=== PATIENT | female | born 1985 | race Caucasian/White ===

== ENCOUNTER 2016-09-16 11:45 | Emergency (ER) | payer OTHER ==
[~2016-09-16] VITALS: Ht 162.6 cm; Wt 104.0 kg
[~2016-09-16 11:45] MED LIST: AUGMENTIN875 MG PO
[2016-09-16 12:13] VITALS: BP 100/85
[2016-09-16] MEDS ORDERED: PRENATAL TABLE1 EAC3 PO (13:38)
[2016-09-16] MEDS ORDERED: LEXAPRO20 MG PO (13:38)
[2016-09-16] MEDS ORDERED: ZYPREXA10 MG PO (13:38)
== END 2016-09-16 14:02 | disposition home or self-care (01) ==
LOC: EME 11:45
DX: O9A.219 Injury, poisoning and certain other consequences of external causes complicating pregnancy, unspecified trimester (principal); S80.01XA Contusion of right knee, initial encounter; W00.0XXA Fall on same level due to ice and snow, initial encounter
CPT/HCPCS: 99281; 99283

== ENCOUNTER 2016-10-01 07:06 | Inpatient (IN) | payer OTHER ==
[2016-10-01] VITALS (21 sets, daily range): BP systolic 91–131; BP diastolic 51–73
[~2016-10-01] VITALS: Ht 162.6 cm; Wt 105.0 kg
[~2016-10-01 07:06] MED LIST changes: +LEXAPRO20 MG PO; +PRENATAL TABLE1 EAC3 PO; +ZYPREXA10 MG PO
[2016-10-01 07:45] LABS: EOSINOPHIL (%) 0.2 % (0-5); HEMATOCRIT 38.9 % (36.0-46.0); IMMATURE GRANULOCYTE (%) 0.4 % (0.0-0.7); IMMATURE GRANULOCYTE COUNT 0.1 K/uL; LYMPHOCYTE COUNT 2.1 K/uL (1.0-2.8); MCH 30.7 PG (29.0-34.0); MCHC 32.6 G/DL (30.0-36.0); MONOCYTE (%) 5.3 % (3-12); NEUTROPHIL (%) 83.3 % (45-76); NEUTROPHIL COUNT 16.4 K/uL (1.8-6.4); PLATELET COUNT 285 K/uL (156-360); RBC DIS.WIDTH-SD 48.2 % (39-53); RED BLOOD COUNT 4.14 M/uL (3.80-5.20); WHITE BLOOD COUNT 19.6 K/uL (4.1-10.2)
[2016-10-01] MEDS ORDERED: IBUPROFEN800 MG PO (13:39)
[2016-10-01 17:48] LABS: AMPHETAMINES QUANT VALUE 0 NG/ML; BARBITUATES QUANT VALUE 0 NG/ML; BENZODIAZEPINES QUANT VALUE 0 NG/ML; BENZODIAZEPINES, URINE SCREEN Negative (200 ng/mL); MARIJUANA QUANT VALUE 0 NG/ML; OPIATES QUANTITATIVE VALUE 0 NG/ML; PHENCYCLIDINE QUANT VALUE 0 NG/ML
[2016-10-02 07:38] VITALS: BP 117/75
[2016-10-02 15:44] VITALS: BP 135/80
[2016-10-02 23:11] VITALS: BP 124/69
[2016-10-03 07:18] VITALS: BP 124/77
== END 2016-10-03 15:55 | disposition home or self-care (01) | DRG 774 ==
LOC: LDRP-OP → 2WEST 07:07 → LDRP-OP 10-28 10:21
PROVIDERS: Advanced Practice Midwife; Obstetrics & Gynecology
PROC: 00HU33Z Insertion of Infusion Device into Spinal Canal, Percutaneous Approach (ICD-10-PCS; principal; 2016-10-01)
PROC: 3E0R3CZ (ICD-10-PCS; principal; 2016-10-01)
PROC: 10E0XZZ Delivery of Products of Conception, External Approach (ICD-10-PCS; principal; 2016-10-01)
DX: O99.334 Smoking (tobacco) complicating childbirth (principal); O98.32 Other infections with a predominantly sexual mode of transmission complicating childbirth; O99.344 Other mental disorders complicating childbirth; O99.314 Alcohol use complicating childbirth; O99.324 Drug use complicating childbirth; F17.210 Nicotine dependence, cigarettes, uncomplicated; O32.6XX0 Maternal care for compound presentation, not applicable or unspecified; F32.9 Major depressive disorder, single episode, unspecified; F41.9 Anxiety disorder, unspecified; Z3A.40 40 weeks gestation of pregnancy; Z37.0 Single live birth; M25.561 Pain in right knee; Z59.0 Homelessness
CPT/HCPCS: 73560; 85025; C1755; J1050; J7120

== ENCOUNTER 2016-12-08 08:05 | Day surgery (SDC) | payer OTHER ==
[~2016-12-08] VITALS: Ht 162.6 cm; Wt 89.0 kg
[~2016-12-08 08:05] MED LIST changes: +IBUPROFEN800 MG PO
[2016-12-08 08:35] VITALS: BP 107/70
[2016-12-08 11:42] VITALS: BP 124/70
[2016-12-08 12:49] VITALS: BP 110/50
== END 2016-12-08 13:00 | disposition home or self-care (01) ==
LOC: SDC → 2SOUTH 15:12 → EDSTATUS 15:12 → SDC 15:13
PROC: 0U574ZZ Destruction of Bilateral Fallopian Tubes, Percutaneous Endoscopic Approach (ICD-10-PCS; principal; 2016-12-08)
DX: Z30.2 Encounter for sterilization (principal); F31.9 Bipolar disorder, unspecified; F17.210 Nicotine dependence, cigarettes, uncomplicated; Z80.49 Family history of malignant neoplasm of other genital organs; Z80.3 Family history of malignant neoplasm of breast; Z80.1 Family history of malignant neoplasm of trachea, bronchus and lung
CPT/HCPCS: J0131; J0330; J1100; J1885; J2250; J2405; J3010